=== PATIENT | female | born 1935 | race Caucasian/White ===

== ENCOUNTER 2017-12-15 08:10 | Day surgery (SDC) | payer MEDICARE, OTHER ==
[~2017-12-15 08:10] MED LIST: AMLO10 PO; ANAS1 PO; Bactrim Ds Tab1 EACH PO; CEPH500 PO; FURO20 PO; FURO40 PO; Keflex500 MG PO; LISI20 PO; LORPSEER12 PO; OMEG1CAP30 PO; OXYACE5T PO; POTA10T PO; PSEU120ER PO
== END 2017-12-15 23:19 | disposition home or self-care (01) ==
LOC: MOI US 08:10
PROC: 0HBU3ZX Excision of Left Breast, Percutaneous Approach, Diagnostic (ICD-10-PCS; principal; 2017-12-15)
DX: C50.912 Malignant neoplasm of unspecified site of left female breast (principal); Z17.0 Estrogen receptor positive status [ER+]
CPT/HCPCS: 19083; 77065; 88305; 88360; A4648; G0279

== ENCOUNTER 2017-12-29 08:29 | Day surgery (SDC) | payer MEDICARE, OTHER ==
[2017-12-31] MEDS ORDERED: ASPI81CH PO (14:20)
[2017-12-31] MEDS ORDERED: DESV50 PO (14:21)
[2017-12-31] MEDS ORDERED: Amaryl1 MG PO (14:21)
[2017-12-31] MEDS ORDERED: METF500 PO (14:22)
[2017-12-31] MEDS ORDERED: CHOL10002 PO (14:23)
== END 2017-12-29 22:54 | disposition home or self-care (01) ==
LOC: MOI US 08:29
PROC: BH01ZZZ Plain Radiography of Left Breast (ICD-10-PCS; principal; 2017-12-29)
DX: C50.812 Malignant neoplasm of overlapping sites of left female breast (principal); Z85.3 Personal history of malignant neoplasm of breast
CPT/HCPCS: 19285; 77065

== ENCOUNTER 2018-01-06 07:54 | Day surgery (SDC) | payer MEDICARE, OTHER ==
[~2018-01-06] VITALS: Ht 167.6 cm; Wt 85.3 kg
[~2018-01-06 07:54] MED LIST changes: +ASPI81CH PO; +Amaryl1 MG PO; +CHOL10002 PO; +DESV50 PO; +METF500 PO
== END 2018-01-06 22:43 | disposition home or self-care (01) ==
LOC: ORSCMMR 07:54 → NM 07:54 → ORSCMMR 07:55 → NM 09:00 → ORSCMMR 22:43 → NM 22:43
PROVIDERS: Surgery
PROC: 0HBU0ZZ Excision of Left Breast, Open Approach (ICD-10-PCS; principal; 2018-01-06 11:00)
PROC: 07B60ZX Excision of Left Axillary Lymphatic, Open Approach, Diagnostic (ICD-10-PCS; principal; 2018-01-06 11:00)
DX: C50.812 Malignant neoplasm of overlapping sites of left female breast (principal); C77.3 Secondary and unspecified malignant neoplasm of axilla and upper limb lymph nodes; Z85.3 Personal history of malignant neoplasm of breast; I10 Essential (primary) hypertension; E11.9 Type 2 diabetes mellitus without complications; J45.909 Unspecified asthma, uncomplicated; Z79.899 Other long term (current) drug therapy; Z79.82 Long term (current) use of aspirin; F17.210 Nicotine dependence, cigarettes, uncomplicated
CPT/HCPCS: 38792; 76098; 82947; 88305; 88307; 88342; A9520; J0690; J1100; J2250; J2370; J2405; J3010; J7120; Q9968

== ENCOUNTER → 2020-06-02 | Outpatient (CLI) | payer MEDICARE, OTHER | END | disposition home or self-care (01) | LOC: LAB EV 18:35 → LAB SHORT 18:35 | DX: R30.9 Painful micturition, unspecified (principal) | CPT/HCPCS: 87086 ==

== ENCOUNTER → 2020-10-12 | Outpatient (CLI) | payer MEDICARE, OTHER | END | disposition home or self-care (01) | LOC: LAB 15:17 → LAB SHORT 15:17 | DX: L90.5 Scar conditions and fibrosis of skin (principal) | CPT/HCPCS: 88305 ==

== ENCOUNTER → 2020-12-18 | Outpatient (CLI) | payer MEDICARE, OTHER | LOC: LAB SHORT 14:45 | DX: D22.5 Melanocytic nevi of trunk (principal) | CPT/HCPCS: 88305 ==

== ENCOUNTER 2023-02-11 08:46 | Emergency (ER) | payer MEDICARE, OTHER ==
[~2023-02-11] VITALS: Ht 170.2 cm; Wt 81.7 kg
[2023-02-11] MEDS ORDERED: Zestril40 MG PO (09:17)
[2023-02-11] MEDS ORDERED: LETR2.5 PO (09:18)
[2023-02-11] MEDS ORDERED: VITAMIN D5000 UNIT PO (09:18)
[2023-02-11 09:38] LABS: Source, Urine Clean Catch
[2023-02-11 09:41] LABS: Appearance, Urine Hazy (Clear); Blood, Urine 5+ (Neg); Color, Urine Yellow (P-Yellow); Glucose Qualitative, Urine Neg (Neg); Ketones, Urine Neg (Neg); Leukocyte Esterase, Urine 3+ (Neg); Nitrite, Urine Pos (Neg); Protein, Urine 2+ (Neg); Urobilinogen, Urine 1+ (Normal)
[2023-02-11 10:03] LABS: Bilirubin, Urine 1+ (Neg)
[2023-02-11 10:04] LABS: Bacteria Many /hpf
[2023-02-11 10:05] LABS: Granular Casts 0-2 /lpf (0)
[2023-02-11 10:07] LABS: Renal Epithelial Rare /hpf (0-Rare); Transitional Epithelial Cells Rare /hpf (0-Rare)
[2023-02-11 10:08] LABS: Red Blood Cells, Urine 0-2 /hpf (0-2); White Blood Cells, Urine 0-2 /hpf (0-5)
[2023-02-11 10:09] LABS: Mucus Light (0-Heavy); Squamous Epithelial Cells Rare /hpf (Few); Yeast/Fungi Urine Rare /hpf
[2023-02-11] MEDS ORDERED: CEPH500 PO (12:02)
[2023-02-11 12:27] VITALS: BP 133/69
== END 2023-02-11 12:28 | disposition home or self-care (01) ==
LOC: ER 08:46
PROVIDERS: Family Medicine
DX: N39.0 Urinary tract infection, site not specified (principal); B37.9 Candidiasis, unspecified; E11.649 Type 2 diabetes mellitus with hypoglycemia without coma; I10 Essential (primary) hypertension; F17.200 Nicotine dependence, unspecified, uncomplicated; Z79.899 Other long term (current) drug therapy; Z79.82 Long term (current) use of aspirin; Z79.84 Long term (current) use of oral hypoglycemic drugs
CPT/HCPCS: 81001; 82947; 87077; 87086; 87186; 99283-25; A9270

== ENCOUNTER 2023-04-15 14:36 | Emergency (ER) | payer MEDICARE, OTHER ==
[~2023-04-15] VITALS: Ht 170.2 cm; Wt 74.8 kg
[~2023-04-15 14:36] MED LIST changes: +LETR2.5 PO; +VITAMIN D5000 UNIT PO; +Zestril40 MG PO
[2023-04-15 14:58] LABS: Hematocrit 28.3 % (33.0-51.0); Hemoglobin 8.9 g/dL (11.5-16.0); Mean Corpuscular HGB 29.8 pg (26.0-34.0); Mean Corpuscular HGB Conc 31.4 g/dL (31.5-36.5); Mean Corpuscular Volume 95 fL (80-100); NRBC ABSOLUTE 0.06 K/mm3 (0.00-0.02); NRBC Auto 0.5 /100 WBC (0.0-0.2); Platelet Count 114 K/mm3 (150-400); RDW Coefficient Variation 23.6 % (11.7-14.2); RDW Standard Deviation 79.3 fL (35.1-46.3); Red Blood Cell Count 2.99 M/mm3 (3.80-5.20); White Blood Cell Count 12.54 K/mm3 (4.00-11.30)
[2023-04-15 15:20] LABS: Albumin, Blood 2.3 g/dL (3.4-5.0); Albumin/Globulin Ratio 0.6 (0.8-1.8); Bilirubin, Total 1.1 mg/dL (0.1-1.0); Bun/Creatinine Ratio 67.2 (12.0-20.0); Calcium, Blood 8.8 mg/dL (8.5-10.1); Creatinine, Blood 1.83 mg/dL (0.40-1.00); Globulin, Blood 4.1 g/dL (2.2-4.0); Potassium, Blood 4.7 mmol/L (3.5-5.5); Total Protein, Blood 6.4 g/dL (6.4-8.2)
[2023-04-15 15:25] LABS: BAND PERCENT MAN 2 % (0-8); BASOPHILS PERCENT MAN 0 % (0-2); EOSINOPHILS PERCENT MAN 0 % (0-6); LYMPHOCYTES ABSOLUTE MAN 1.37 K/mm3 (0.84-5.20); LYMPHOCYTES PERCENT MAN 11 % (21-46); MONOCYTES ABSOLUTE MAN 0.25 K/mm3 (0.16-1.47); MONOCYTES PERCENT MAN 2 % (4-13); MYELOCYTE ABSOLUTE MAN 0.25 K/mm3 (0.00-0.00); MYELOCYTE PERCENT MAN 2 % (0-0); NEUTROPHILS ABSOLUTE MAN 10.65 K/mm3 (1.96-9.15); SEG NEUTROPHILS PERCENT MAN 83 % (41-73); TOTAL CELLS COUNTED 100
[2023-04-15 18:03] LABS: International Normalized Ratio 1.2; Prothrombin Time Results 12.5 Sec (9.7-11.5)
[2023-04-15 20:48] VITALS: BP 110/43
== END 2023-04-15 21:00 | disposition short-term general hospital (02) ==
LOC: ER 14:36
PROVIDERS: Emergency Medicine; Student in an Organized Health Care Education/Training Program
DX: K92.2 Gastrointestinal hemorrhage, unspecified (principal); I10 Essential (primary) hypertension; Z79.899 Other long term (current) drug therapy; Z79.82 Long term (current) use of aspirin; Z79.84 Long term (current) use of oral hypoglycemic drugs; Z87.891 Personal history of nicotine dependence
CPT/HCPCS: 36430; 71045; 80053; 82140; 83690; 85025; 85610; 86850; 86900; 86901; 86923; 93005; 93010; 96365; 96366; 96375; 99285-25; C9113; J0696; J7040; P9016

== ENCOUNTER 2023-04-26 03:06 | Inpatient (IN) | payer MEDICARE, OTHER ==
[~2023-04-26] VITALS: Ht 172.7 cm; Wt 66.8 kg
[2023-04-26] VITALS (9 sets, daily range): BP systolic 96–125; BP diastolic 41–79
[2023-04-26 03:58] LABS: BASOPHILS ABSOLUTE AUTO 0.03 K/mm3 (0.00-0.23); BASOPHILS PERCENT AUTO 0 % (0-2); EOSINOPHILS ABSOLUTE AUTO 0.01 K/mm3 (0.00-0.68); EOSINOPHILS PERCENT AUTO 0 % (0-6); Hematocrit 28.5 % (33.0-51.0); Hemoglobin 9.4 g/dL (11.5-16.0); IMMATURE GRAN ABSOLUTE AUTO 0.22 K/mm3 (0.00-0.10); IMMATURE GRAN PERCENT AUTO 2 % (0-1); LYMPHOCYTES ABSOLUTE AUTO 0.86 K/mm3 (0.84-5.20); LYMPHOCYTES PERCENT AUTO 6 % (21-46); MONOCYTES ABSOLUTE AUTO 1.89 K/mm3 (0.16-1.47); MONOCYTES PERCENT AUTO 13 % (4-13); Mean Corpuscular HGB 29.2 pg (26.0-34.0); Mean Corpuscular Volume 89 fL (80-100); NEUTROPHILS ABSOLUTE AUTO 11.26 K/mm3 (1.96-9.15); NEUTROPHILS PERCENT AUTO 79 % (41-73); NRBC ABSOLUTE 0.09 K/mm3 (0.00-0.02); NRBC Auto 0.6 /100 WBC (0.0-0.2); Platelet Count 140 K/mm3 (150-400); RDW Coefficient Variation 20.3 % (11.7-14.2); RDW Standard Deviation 63.1 fL (35.1-46.3); Red Blood Cell Count 3.22 M/mm3 (3.80-5.20); White Blood Cell Count 14.27 K/mm3 (4.00-11.30)
[2023-04-26] MEDS ORDERED: FURO20 PO (04:04)
[2023-04-26] MEDS ORDERED: PANT40 PO (04:05)
[2023-04-26] MEDS ORDERED: SPIR50 PO (04:05)
[2023-04-26 04:17] LABS: International Normalized Ratio 1.38; Prothrombin Time Results 14.2 Sec (9.7-11.5)
[2023-04-26 04:31] LABS: Albumin, Blood 2.8 g/dL (3.4-5.0); Albumin/Globulin Ratio 0.7 (0.8-1.8); Bilirubin, Total 3.2 mg/dL (0.1-1.0); Bun/Creatinine Ratio 27.9 (12.0-20.0); Calcium, Blood 8.9 mg/dL (8.5-10.1); Creatinine, Blood 3.41 mg/dL (0.40-1.00); Globulin, Blood 4.3 g/dL (2.2-4.0); Total Protein, Blood 7.1 g/dL (6.4-8.2)
[2023-04-26 06:49] LABS: Influenza A, PCR NEGATIVE (NEGATIVE); Influenza B, PCR NEGATIVE (NEGATIVE); Resp Syncytial Virus, PCR NEGATIVE (NEGATIVE); SARS-Cov-2 (COVID-19) PCR, MMC NEGATIVE (NEGATIVE)
[2023-04-26 10:09] LABS: Hematocrit 26.2 % (33.0-51.0); Hemoglobin 8.6 g/dL (11.5-16.0)
[2023-04-26 14:36] LABS: Source, Urine Foley catheter
[2023-04-26 14:38] LABS: Appearance, Urine Clear (Clear); Bilirubin, Urine Neg (Neg); Blood, Urine Neg (Neg); Color, Urine Amber (P-Yellow); Glucose Qualitative, Urine Neg (Neg); Ketones, Urine Neg (Neg); Leukocyte Esterase, Urine 1+ (Neg); Nitrite, Urine Neg (Neg); Protein, Urine 1+ (Neg); Specific Gravity, Urine 1.015 (1.003-1.022); Urobilinogen, Urine NORM (Normal)
[2023-04-26 14:47] LABS: Red Blood Cells, Urine 0-2 /hpf (0-2); Squamous Epithelial Cells Rare /hpf (Few); White Blood Cells, Urine 0-2 /hpf (0-5)
[2023-04-26 14:48] LABS: Bacteria Few /hpf
[2023-04-26 16:14] LABS: Hematocrit 25.9 % (33.0-51.0); Hemoglobin 8.3 g/dL (11.5-16.0)
--- NOTE | 2023-04-26 18:24 | NUR ---
SHIFT SUMMARY PATIENT REMAINS ON OCTREOTIDE AND PROTONIX GTT AND D5 1/2 NS @ 75 ML/HR. ONE TARRY DARK BM UPON ARRIVAL TO UNIT, NO BM SINCE. NO VOMITING THIS SHIFT. PATIENT REMAINS ON 2LPM VIA NC TO KEEP SPO2 GREATER THAN 90%. VIRK PLACED FOR CRITICAL I&O'S AFTER RENAL/BLADDER US SHOWED 750ML URINE. AWAITING TRANSFER BED. NO OTHER CHANGES DURING SHIFT.
[2023-04-26 22:08] LABS: Hematocrit 24.2 % (33.0-51.0); Hemoglobin 7.9 g/dL (11.5-16.0)
[2023-04-27] VITALS (12 sets, daily range): BP systolic 91–116; BP diastolic 46–87
[2023-04-27 02:55] LABS: BASOPHILS ABSOLUTE AUTO 0.08 K/mm3 (0.00-0.23); BASOPHILS PERCENT AUTO 1 % (0-2); EOSINOPHILS PERCENT AUTO 2 % (0-6); Hematocrit 24.1 % (33.0-51.0); Hemoglobin 7.8 g/dL (11.5-16.0); IMMATURE GRAN ABSOLUTE AUTO 0.24 K/mm3 (0.00-0.10); IMMATURE GRAN PERCENT AUTO 2 % (0-1); LYMPHOCYTES ABSOLUTE AUTO 1.64 K/mm3 (0.84-5.20); LYMPHOCYTES PERCENT AUTO 13 % (21-46); MONOCYTES ABSOLUTE AUTO 1.82 K/mm3 (0.16-1.47); MONOCYTES PERCENT AUTO 15 % (4-13); Mean Corpuscular HGB 28.6 pg (26.0-34.0); Mean Corpuscular HGB Conc 32.4 g/dL (31.5-36.5); Mean Corpuscular Volume 88 fL (80-100); NEUTROPHILS ABSOLUTE AUTO 8.24 K/mm3 (1.96-9.15); NEUTROPHILS PERCENT AUTO 67 % (41-73); NRBC Auto 0.8 /100 WBC (0.0-0.2); Platelet Count 121 K/mm3 (150-400); RDW Coefficient Variation 21.2 % (11.7-14.2); RDW Standard Deviation 65.3 fL (35.1-46.3); Red Blood Cell Count 2.73 M/mm3 (3.80-5.20); White Blood Cell Count 12.22 K/mm3 (4.00-11.30)
[2023-04-27 03:11] LABS: Albumin, Blood 2.3 g/dL (3.4-5.0); Albumin/Globulin Ratio 0.7 (0.8-1.8); Bilirubin, Total 2.8 mg/dL (0.1-1.0); Bun/Creatinine Ratio 27.1 (12.0-20.0); Calcium, Blood 8.2 mg/dL (8.5-10.1); Creatinine, Blood 3.39 mg/dL (0.40-1.00); Globulin, Blood 3.4 g/dL (2.2-4.0); Potassium, Blood 4.7 mmol/L (3.5-5.5); Total Protein, Blood 5.7 g/dL (6.4-8.2)
--- NOTE | 2023-04-27 04:57 | NUR ---
SHIFT SUMMARY: Uneventful shift. BP soft- MAPs between 60-65. On 2L nasal cannula. Vitals otherwise stable. Pt is alert and oriented. She is weak and needs assistance with repositioning. Had one incontinent, small black tarry stool. H&H trending down, hemoglobin still greater than 7.
--- NOTE | 2023-04-27 07:33 | NUR ---
LENNY IS QUIETLY RESTING ON HER LEFT SIDE, VITAL SIGNS STABLE. OCTREOTIDE INFUSING @ 25ML/HR, PANTOPRAZOLE @ 10ML/HR. SINUS RHYTHM, RATE 70'S.
--- NOTE | 2023-04-27 07:46 | NUR ---
LENNY MCDONALD, SHE SAYS SHE "HAS NEVER SEEN SO MANY WIRES". OXYGEN SATS 98% AND NC NOT IN HER NOSE, STATES "KEEPS FALLING OUT", REMOVED. WILL OBSERVE.
--- NOTE | 2023-04-27 08:32 | NUR ---
FUENTES DID NOT TOLERATE BEING OFF HER NC. SATS TO MID 80S. OXYGEN REPLACED AT 2L
[2023-04-27 09:42] LABS: Hematocrit 25.4 % (33.0-51.0); Hemoglobin 8.2 g/dL (11.5-16.0)
--- NOTE | 2023-04-27 10:52 | NUR ---
FUENTES'S DAUGHTER PHONED, RELAYED THAT SHE HAD NOT BEEN INFORMED OF THE TRANSFER OF HER MOTHER BY THE [facility]. HER FRIEND, HOLLIS, WHO HELPS CARE FOR HER IS HERE, ASKING ABOUT HER PURSE AND CLOTHING. THERE IS NOT ANY BELONGINGS IN THE ROOM FOR THE PATIENT. LENNY DOESNT REMEMBER COMING HERE OR WHY SHE IS HERE.
[2023-04-27 14:44] LABS: Hematocrit 26.5 % (33.0-51.0); Hemoglobin 8.6 g/dL (11.5-16.0)
--- NOTE | 2023-04-27 15:49 | NUR ---
TRANSFER TO PCU: PATIENT ARRIVES TO PCU 05 AROUND 1530. USED SLIDE SHEET TO TRANSFER. ALERT AND ORIENTED X3-4. SLIGHTLY SELDOVIA. PERRLA. DENIES NUMBNESS/TINGLING. ABLE TO HELP WITH TURNS IN BED. TELE SHOWING SR WITH HR 70'S. BP 111/58 (73). DENIES CHEST PAIN/PRESSURE. NO EDEMA NOTED. ON 2L NASAL CANNULA SATING ABOVE 95%. LUNGS SOUNDING CLEAR AND DIMINISHED. OCCASIONAL COUGH. DENIES SOB. NPO AT THIS TIME. SANDOSTATIN AND PROTONIX INFUSING PER EMAR. PATIENT DENIES ABDOMINAL PAIN/ESOPHAGEAL PAIN. DENIES NAUSEA. BOWEL TONES PRESENT. ATTENDS DRY AND CLEAN. VIRK CATH IN PLACE DRAINING TO GRAVITY. URINE CLEAR/MORRO. Q6 BLOOD SUGARS. REPOSITIONED AND FLOATING HIPS AT THIS TIME. SKIN OVERALL PALE AND SCATTERED BRUISING. SCD'S IN PLACE. DENIES NEEDS AT THIS TIME, WATCHING TV. ORIENTED TO UNIT AND ROOM. CALL LIGHT IN REACH.
--- NOTE | 2023-04-27 17:20 | NUR ---
SHIFT SUMMARY: NO ACUTE CHANGES. PATIENT 1800 BLOOD SUGAR READING 84. REPOSITIONING AND ORAL CARE NEEDED. VITALS SIGNS REMAIN STABLE. TELE CONTINUES TO SHOW SR WITH HR 70'S. SATING ABOVE 95% ON 2L NASAL CANNULA. DENIES NEEDS AT THIS TIME. WATCHING TV IN BED.
--- NOTE | 2023-04-27 19:58 | NUR ---
NOTIFIED PT OF TRANSFER TO [facility] AROUND 2100. PT REQUESTED THIS RN TO ONLY NOTIFY HER CAREGIVER HOLLIS OF TRANSFER UPDATE, NOT HER FAMILY INCLUDING HER DAUGHTER. THIS RN CALLED AND SPOKE TO HOLLIS AND UPDATED ON TRANSFER PLAN TO [facility] IN [place].
--- NOTE | 2023-04-27 21:32 | NUR ---
DISCHARGE PT TRANSFERRED TO [facility] IN [place] AT THIS TIME. DISCHARGE PACKET GIVEN TO [facility]. PT TRANSFERRED WITH PERSONAL BELONGINGS INCLUDING HER JEWELRY (RING). IV PUMPS WITH PROTONIX AND SANDOSTATIN GTTS INFUSING PER ORDERS. PUMP #: [id number] AND [id number].
== END 2023-04-27 21:25 | disposition short-term general hospital (02) | DRG 377 ==
LOC: ER 03:06 → PCU 03:07 → ICUE 08:00 → PCU 04-27 15:32
PROVIDERS: Internal Medicine; Student in an Organized Health Care Education/Training Program; ADMIT Internal Medicine
PROC: 0T2BX0Z Change Drainage Device in Bladder, External Approach (ICD-10-PCS; principal; 2023-04-26)
DX: K92.1 Melena (principal); J96.01 Acute respiratory failure with hypoxia; N17.9 Acute kidney failure, unspecified; N13.30 Unspecified hydronephrosis; F32.A Depression, unspecified; I10 Essential (primary) hypertension; I95.9 Hypotension, unspecified; K76.0 Fatty (change of) liver, not elsewhere classified; K74.60 Unspecified cirrhosis of liver; R33.9 Retention of urine, unspecified; Z20.822 Contact with and (suspected) exposure to COVID-19; D64.9 Anemia, unspecified; R74.01 Elevation of levels of liver transaminase levels; D69.6 Thrombocytopenia, unspecified; E11.649 Type 2 diabetes mellitus with hypoglycemia without coma; Z87.19 Personal history of other diseases of the digestive system; Z79.899 Other long term (current) drug therapy; Z79.811 Long term (current) use of aromatase inhibitors; Z79.01 Long term (current) use of anticoagulants; Z79.82 Long term (current) use of aspirin; Z79.84 Long term (current) use of oral hypoglycemic drugs; Z85.3 Personal history of malignant neoplasm of breast; Z90.10 Acquired absence of unspecified breast and nipple; Z90.89 Acquired absence of other organs; Z98.890 Other specified postprocedural states; Z87.891 Personal history of nicotine dependence
CPT/HCPCS: 0241U; 36415; 51702; 76770; 80053; 81001; 82272; 82947; 85014; 85018; 85025; 85610; 85730; 86850; 86900; 86901; 87086; 93005; 93010; 96365; 96366; 96368; 96375; 96376; 99285-25; C9113; G0378; J0696; J2354; J2765; J7030; J7042; J7050